=== PATIENT | female | born 1980 | race Caucasian/White ===

== ENCOUNTER 2017-10-13 06:21 | Inpatient (IN) | payer BC ==
[2017-10-13] MEDS ORDERED: Glycerin ADULT SUPP PR PRN (07:22)
[2017-10-13] MEDS: Docusate CAP* 100 MG PO SCH ×3 (08:07→21:10)
[2017-10-13] MEDS: Ibuprofen TAB* 600 MG PO PRN ×3 (08:07→21:10)
[2017-10-13] MEDS: Witch Hazel PAD* JAR TOPICAL PRN ×2 (08:09→21:09)
[2017-10-13] MEDS: Dibucaine 1% 28.35 GM TUBE PR PRN ×2 (08:09→21:09)
[2017-10-13] MEDS ORDERED: Simethicone TAB* 80 MG TAB.CHEW PO SCH (08:30)
[2017-10-13] MEDS ORDERED: OXYTOCIN* 10 UNITS/ML 1 ML VIAL IM ONE (09:21)
[2017-10-13] MEDS: Acetaminophen TAB* 325 MG PO PRN (09:22)
[2017-10-13] MEDS ORDERED: oxyCODONE/Acetamin 5/325 MG* TAB ONE (09:49)
[2017-10-13] MEDS: oxyCODONE/Acetamin 5/325 MG* TAB PO PRN ×2 (15:19→21:09)
[2017-10-14] MEDS: Ibuprofen TAB* 600 MG PO PRN ×3 (04:50→18:26)
[2017-10-14] MEDS: oxyCODONE/Acetamin 5/325 MG* TAB PO PRN ×2 (04:51→08:53)
[2017-10-14 06:58] LABS: ABS Basophils 0 10^3/ul (0-0.2); ABS Eosinophils 0.2 10^3/ul (0-0.6); ABS Monocytes 0.7 10^3/ul (0-0.8); ABS Neutrophils 9.3 10^3/ul (1.5-7.7); ABS Nucleated RBC 0 10^3/ul; Eosinophil % 1.4 % (0-6); Hematocrit 29 % (35-47); Lymphocyte % 16.2 % (25-47); Mean Corpuscular HGB Conc 35 g/dl (31-36); Mean Corpuscular Hemoglobin 31 pg (27-31); Mean Corpuscular Volume 90 fL (80-97); Nucleated Red Blood Cells % 0; Platelet Count 173 10^3/ul (150-450); Red Blood Count 3.18 10^6/ul (4.00-5.40); Red Cell Distribution Width 15 % (10.5-15); White Blood Count 12.1 10^3/ul (3.5-10.8)
[2017-10-14] MEDS: Ferrous Gluconate TAB* 324 MG TAB PO SCH ×2 (08:53→21:29)
[2017-10-14] MEDS: Docusate CAP* 100 MG PO SCH ×2 (08:53→18:26)
[2017-10-14] MEDS: Levothyroxine TAB* 25 MCG TAB PO SCH (14:13)
[2017-10-14] MEDS: Dibucaine 1% 28.35 GM TUBE PR PRN (21:32)
[2017-10-14] MEDS: Witch Hazel PAD* JAR TOPICAL PRN (21:32)
[2017-10-15] MEDS: Ibuprofen TAB* 600 MG PO PRN (05:03)
[2017-10-15] MEDS ORDERED: Levothyroxine TAB* 25 MCG TAB PO SCH (06:00)
--- NOTE | 2017-10-15 06:53 | HP ---
General Information - General Information Maternal Age: 37 Grav: 9 Para: 4 SAB: 3 IEA: 0 Estimated Due Date: 10/10/17 Determined By: LMP Maternal Blood Type and Rh: A Positive - Results this Serology/RPR Result: Non-Reactive Rubella Result: Immune HBsAg Result: Negative HIV Result: Negative GBS Culture Result: Negative Past Medical History Delivery History: Hx Uncomplicated Vaginal Delivery - hx precipitous delivery Pertinent Past Medical History: See Records - hypothyroidism, depression/ anxiety, eczema Pertinent Past Surgical History: See Records - D&C Pertinent Family History: Non-Contributory - Antepartal Records Antepartal Records: Reviewed, Complicated by: - hypothyroidism, depression Review of Systems Constitutional: Uncomfortable - contractions CV Complaint: No Respiratory: Shortness of Breath: No Gastrointestinal: No Nausea/Vomiting, Normal Bowel Movement Genitourinary: No Dysuria, No Bleeding, No Leaking Fluid Musculoskeletal: No Epigastric Pain, Contractions Neurological: No Headache, No Visual Changes Movement: Normal Exam Allergies/Adverse Reactions: Allergies No Known Allergies Allergy (Verified 12/16/13 07:53) Vital Signs 10/14/17 10/14/17 10/14/17 07:45 07:54 08:53 Temperature 98.3 F Pulse Rate 93 Respiratory 16 17 17 Rate Blood Pressure 110/68 (mmHg) 10/14/17 10/14/17 10/15/17 10:50 20:17 06:05 Temperature 98.2 F Pulse Rate 102 Respiratory 18 16 18 Rate Blood Pressure 116/64 (mmHg) Lab Values - Entire Visit: Laboratory Tests 10/14/17 06:23 WBC 12.1 H RBC 3.18 L Hgb 10.0 L Hct 29 L MCV 90 MCH 31 MCHC 35 RDW 15 Plt Count 173 MPV 9.0 Neut % (Auto) 76.5 Lymph % (Auto) 16.2 L Heard % (Auto) 5.7 Eos % (Auto) 1.4 Baso % (Auto) 0.2 Absolute Neuts (auto) 9.3 H Absolute Lymphs (auto) 2.0 Absolute Monos (auto) 0.7 Absolute Eos (auto) 0.2 Absolute Basos (auto) 0 Absolute Nucleated RBC 0 Nucleated RBC % 0 - Measurements Height: 5 ft 8.25 in Weight: 88.451 kg Weight in lbs: 195.857088 Body Mass Index (BMI): 29.4 Pre- Weight: 77.111 kg Weight Gained This : 24.999 lbs and 0.008 ozs - Exam Breast: Breast Exam Deferred CVA: No CVA Tenderness Extremities: No Edema Heart: Normal Rhythm/Heart Sounds HEENT: No Significant Findings Lungs: Clear Bilaterally Rectal: Rectal Exam Deferred Reflexes: DTR 2+ Thyroid: No Thyromegaly - Abdominal Exam Abdomen Exam: Non-Tender, Fundal Height Consistent with Dates - Ultrasound/Biophysical Profile Ultrasound Status: Not Done Targeted Exam Findings See L&D Outpatient Visit Provider Note for Findings: N/A Estimated Weight: 8.5# Cervical Exam: Complete Effacement: 100% Presenting Part: Vertex Membrane Status: Bulging Bleeding/Discharge: None EFM Findings - External Monitor Findings Baseline Heart Rate: 160 External Monitor Findings: Variability Moderate, Accelerations Absent, Variable or Late Deceleration Pattern Present, Baseline Rate Changing Contractions: Regular, Strong, 45-90 Seconds Contraction Frequency: 2-3 Assessment/Plan - Assessment 37 year old at 40 2/7 weeks gestation in active, precipitous labor Cat II FHR tracing, delivery imminent - Obstetrical Risk Factors Obstetrical Risk Factors: Post-Dates - Plan Plan: Admit - Anticipate Vaginal Delivery - Date/Time of Admission Date of Admission: 10/13/17 Time of Admission: 06:45
--- NOTE | 2017-10-15 08:02 | PROCNOTE ---
[facility] OB: Delivery Note - Delivery A Date of : 10/13/17 Time of : 07:14 [place] Sex: Male Weight at : 4.286 kg Score 1 Minute: 8 Score 5 Minutes: 9 Gestational Age in Weeks and Days at Delivery: 40 Weeks and 3 Days Delivery Method: Spontaneous Vaginal Labor: Spontaneous Did Patient attempt ?: N/A, No Previous Amniotic Fluid: Meconium Anesthesia/Analgesia: Nitrous-Labor Delivered By: Nivia Calzada - assisted by Dr. Tong - Nursery Level of Nursery: Regular/Bedside - Perineum Perineal Injury: 1st Degree Perineal Repair: By Delivering Practioner - Events Delivery Events of Note: Pitocin Only After Delivery, Precipitous Delivery Delivery Events of Note Comment: 10 Units IM Pitocin given at 0725 - Additional Delivery Notes Additional Delivery Notes: Pt arrived at hospital fully dilated approximately 2 hours after her contractions started. Pt requested and received nitrous oxide. Pushing efforts began soon after. Shortly after that, FHR tracing showed deep variable decelerations with slow recovery and nitrous oxide discontinued. Dr. Tong in room. After strong maternal efforts in squatting position with bar, infant's head delivered OA to DILMA. Shoulders followed with strong maternal effort and gentle traction. Infant with terminal meconium, Apgars 8/9. to maternal abdomen with good cry and spontaneous respiratory efforts. After pulsation ceased cord clamped twice and cut by pt's . Placenta delivered spontaneously, maternal side presenting, intact. Uterus boggy initially, IM Pitocin administered and fundal massage done. Tone quickly improved, and bleeding was minimal after that point. Pt w/ small first degree laceration, repaired with absorbable suture, resulting in good hemostasis and tissue approximation. Mother and baby stable, anticipate normal course.
[2017-10-15] MEDS: Levothyroxine TAB* 25 MCG TAB PO SCH (08:06)
[2017-10-15] MEDS: Docusate CAP* 100 MG PO SCH (08:08)
[2017-10-15] MEDS: Acetaminophen TAB* 325 MG PO PRN (09:57)
[2017-10-15] MEDS: Dibucaine 1% 28.35 GM TUBE PR PRN (10:02)
[2017-10-15 10:06] VITALS: BP 112/60
== END 2017-10-15 10:30 | disposition home or self-care (01) | DRG 560 ==
LOC: MCHOBOUT 06:21 → MCHOB 06:30
PROVIDERS: ADMIT Midwife; ATTEND Obstetrics & Gynecology
PROC: 10E0XZZ Delivery of Products of Conception, External Approach (ICD-10-PCS; principal; 2017-10-13)
PROC: 4A1HXCZ Monitoring of Products of Conception, Cardiac Rate, External Approach (ICD-10-PCS; 2017-10-13)
PROC: 0HQ9XZZ Repair Perineum Skin, External Approach (ICD-10-PCS; 2017-10-13)
DX: O62.3 Precipitate labor (principal); O77.0 Labor and delivery complicated by meconium in amniotic fluid; O70.0 First degree perineal laceration during delivery; O71.89 Other specified obstetric trauma; O90.81 Anemia of the puerperium; O99.284 Endocrine, nutritional and metabolic diseases complicating childbirth; E03.9 Hypothyroidism, unspecified; Z3A.40 40 weeks gestation of pregnancy; Z37.0 Single live birth; O48.0 Post-term pregnancy; O76 Abnormality in fetal heart rate and rhythm complicating labor and delivery
CPT/HCPCS: 36415; 85025; A9270-GY; J2590